=== PATIENT | male | born 1970 | race Caucasian/White ===

== ENCOUNTER 2017-05-12 09:49 | Emergency (ER) | payer OTHER ==
[2017-05-12] MEDS ORDERED: Sodium Chloride 0.9% 10 ML Syringe FLUSH PRN (10:32)
[2017-05-12] MEDS ORDERED: Propofol 200 MG/20 ML SDV ONE (10:45)
--- NOTE | 2017-05-12 11:12 | EDM.PDOC ---
ED HPI GENERAL MEDICAL PROBLEM - General Chief Complaint: Cardiovascular Problem Stated Complaint: A-FIB Time Seen by Provider: 05/12/17 10:31 Source of Information: Reports: Patient History Limitations: Reports: No Limitations - History of Present Illness INITIAL COMMENTS - FREE TEXT/NARRATIVE: This patient comes in with a recurrent episode of atrial fibrillation. This is a long-standing problem for him and he's had about 10 or 12 episodes in the past where he was cardioverted. The last time was about 3 years ago. He awoke this morning with an irregularly irregular heartbeat but no other symptoms so he came straight to the ER. He's requesting cardioversion. He describes a full cardiac workup in the past and told the nurse that ablation has been offered in the past but he has declined that. Otherwise he's doing well. 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 - Related Data Allergies Allergy/AdvReac Type Severity Reaction Status Date / Time azithromycin [From Zithromax] Allergy Rash Verified 05/12/17 10:06 Home Meds: Home Meds Calcium Carbonate/Vitamin D3 [Calcium 500 + Vit D 400] 1 each PO DAILY 05/12/17 [History] Diltiazem [Cardizem CD] 180 mg PO DAILY 05/12/17 [History] Levothyroxine [Synthroid] 50 mcg PO DAILY 05/12/17 [History] Magnesium 400 mg PO DAILY 05/12/17 [History] atorvaSTATin [Lipitor] 20 mg PO BEDTIME 05/12/17 [History] Past Medical History Cardiovascular History: Reports: Arrhythmia, High Cholesterol, Other (See Below) Other Cardiovascular History: bycusbit arotic valve Endocrine/Metabolic History: Reports: Hypothyroidism Social & Family History - Caffeine Use Caffeine Use: Reports: Coffee - Alcohol Use Days Per Week of Alcohol Use: 3 Number of Drinks Per Day: 2 Total Drinks Per Week: 6 - Recreational Drug Use Recreational Drug Use: No ED ROS GENERAL - Review of Systems Review Of Systems: See Below Constitutional: Reports: No Symptoms HEENT: Reports: No Symptoms Respiratory: Reports: No Symptoms Cardiovascular: Reports: Palpitations Endocrine: Reports: No Symptoms GI/Abdominal: Reports: No Symptoms : Reports: No Symptoms ED EXAM, GENERAL - Physical Exam Exam: See Below Exam Limited By: No Limitations General Appearance: Alert, WD/WN, No Apparent Distress Eye Exam: Bilateral Eye: Normal Inspection Throat/Mouth: Normal Inspection Respiratory/Chest: No Respiratory Distress, Lungs Clear Cardiovascular: Normal Peripheral Pulses, Irregularly Irregular Peripheral Pulses: 2+: Radial (L), Radial (R) Extremities: Normal Inspection Neurological: Alert, Oriented Psychiatric: Normal Affect Skin Exam: Warm, Dry Course - Vital Signs Last Recorded V/S: Last Vital Signs Temp 36.9 C 05/12/17 10:15 Pulse 132 H 05/12/17 10:15 Resp 15 05/12/17 10:15 BP 110/63 05/12/17 10:15 Pulse Ox 96 05/12/17 10:15 - Orders/Labs/Meds Orders: Active Orders 24 hr Category Date Time Status EKG Documentation Completion [RC] ASDIRECTED Care 05/12/17 10:45 Active EKG Documentation Completion [RC] ASDIRECTED Care 05/12/17 10:55 Active Sodium Chloride 0.9% [Saline Flush] Med 05/12/17 10:32 Active 10 ml FLUSH ASDIRECTED PRN Saline Lock Insert [OM.PC] Urgent Oth 05/12/17 10:32 Ordered EKG 12 Lead [EK] Urgent Ther 05/12/17 10:45 Ordered EKG 12 Lead [EK] Urgent Ther 05/12/17 10:55 Ordered Medication Orders Sodium Chloride (Saline Flush) 10 ml FLUSH ASDIRECTED PRN PRN Reason: Keep Vein Open Meds: Medications Generic Name Dose Route Start Last Admin Trade Name Freq PRN Reason Stop Dose Admin Sodium Chloride 10 ml 05/12/17 10:32 Saline Flush FLUSH ASDIRECTED PRN Keep Vein Open Discontinued Medications Generic Name Dose Route Start Last Admin Trade Name Freq PRN Reason Stop Dose Admin Propofol Confirm 05/12/17 10:45 Diprivan 20 Ml Administered 05/12/17 10:46 Dose 200 mg .ROUTE .[facility] - Re-Assessments/Exams Free Text/Narrative Re-Assessment/Exam: 05/12/17 11:22 Initial EKG shows atrial fibrillation with a ventricular rate of about 102. There are no ischemic changes. Procedure: Elective cardioversion informed consent was obtained on this patient. He is well aware of risks and benefits. Anesthesia was called and administered propofol. Patient was given synchronized cardioversion at 150 J which is what he requested since it's worked well for him before. He converted to sinus rhythm with 1 shock. After several minutes he became responsive again. An EKG was done which showed sinus rhythm at 81 bpm there was initially some ventricular trigeminy. There appears to possibly be some left axis deviation. Patient says that in the past he's generally had some bigemini or trigeminy after these episodes. Patient was allowed to review his EKG. Afterwards he is awake and alert and feels ready to be discharged Departure - Departure Time of Disposition: 11:10 Disposition: Home, Self-Care 01 Condition: Fair Clinical Impression: Paroxysmal atrial fibrillation Instructions: Atrial Fibrillation, [id number] Referrals: PCP,None [Primary Care Provider] - Forms: ED Department Discharge Additional Instructions: Continue your same medications. Followup with your doctor as needed or return to the ER for recurrent episodes. - My Orders Last 24 Hours: My Active Orders 05/12/17 10:32 Sodium Chloride 0.9% [Saline Flush] 10 ml FLUSH ASDIRECTED PRN Saline Lock Insert [OM.PC] Urgent 05/12/17 10:45 EKG Documentation Completion [RC] ASDIRECTED EKG 12 Lead [EK] Urgent 05/12/17 10:55 EKG Documentation Completion [RC] ASDIRECTED EKG 12 Lead [EK] Urgent - Assessment/Plan Last 24 Hours: My Active Orders 05/12/17 10:32 Sodium Chloride 0.9% [Saline Flush] 10 ml FLUSH ASDIRECTED PRN Saline Lock Insert [OM.PC] Urgent 05/12/17 10:45 EKG Documentation Completion [RC] ASDIRECTED EKG 12 Lead [EK] Urgent 05/12/17 10:55 EKG Documentation Completion [RC] ASDIRECTED EKG 12 Lead [EK] Urgent
== END 2017-05-12 11:33 | disposition home or self-care (01) ==
LOC: JP.ED 09:49
DX: I48.0 Paroxysmal atrial fibrillation (principal); E03.9 Hypothyroidism, unspecified; E78.00 Pure hypercholesterolemia, unspecified; Z79.899 Other long term (current) drug therapy; Z88.1 Allergy status to other antibiotic agents
CPT/HCPCS: 92960; 93005; 99285; J2704